=== PATIENT | female | born 1955 | race Caucasian/White ===

== ENCOUNTER 2020-12-10 18:51 | Emergency (ER) | payer BC ==
[~2020-12-10] VITALS: Ht 154.9 cm; Wt 85.7 kg
[2020-12-10 19:26] VITALS: BP 103/67; Ht 154.9 cm; Wt 85.7 kg
[2020-12-10] MEDS ORDERED: IBU600 M2 PO (19:28)
[2020-12-10] MEDS ORDERED: CIPRO500 MG PO (19:28)
[2020-12-10] MEDS ORDERED: HYDROCODONE BIT1 T47 PO (20:43)
[2020-12-10] MEDS ORDERED: TOR10 PO (20:43)
== END 2020-12-10 20:59 | disposition home or self-care (01) ==
LOC: ED 18:51
DX: M54.5 Low back pain (principal); Z88.0 Allergy status to penicillin; Z88.5 Allergy status to narcotic agent; Z88.6 Allergy status to analgesic agent
CPT/HCPCS: J1885; Q0163